=== PATIENT | female | born 1945 | race Caucasian/White ===

== ENCOUNTER → 2016-08-20 | Outpatient (REF) | payer MEDICARE, BC | LOC: M LAB REF 16:35 | PROVIDERS: ATTEND Physician Assistant | DX: L02.415 Cutaneous abscess of right lower limb (principal) ==

== ENCOUNTER → 2017-01-14 | Outpatient (REF) | payer MEDICARE, BC ==
[~2017-01-14] MED LIST: ASPI81TA85 PO; DULO1CAP3; FURO20TA2; INSUHUMDS SC; LANTINJ4; LEVO150T7; LOSARTAN/HCT; OMEP20CA3; VITA-137 PO; VYTO10TA22 PO
== END ==
LOC: M SFHCADAM 17:22
PROVIDERS: ATTEND Family Medicine
DX: R60.9 Edema, unspecified (principal); Z79.899 Other long term (current) drug therapy
CPT/HCPCS: 81002; 83880; 84443; G0463

== ENCOUNTER → 2017-01-28 | Outpatient (CLI) | payer MEDICARE, BC ==
--- NOTE | 2017-01-28 15:27 | REP ---
DUPLEX EXTREMITY VENOUS ULTRASOUND, RIGHT LOWER EXTREMITY: REFLUX STUDY. COMPARISON: Sonography 01/18/2017. REFLUX EVALUATION FINDINGS: There is mild reflux greater than 0.5 seconds in duration in the common femoral artery on the right. The anterior accessory greater saphenous vein is present without visible reflux. Reflux is observed in the greater saphenous vein measuring 0.9 seconds in duration at the saphenofemoral junction. The greater saphenous vein at this level measures 0.9 cm. No other deep system reflux is seen. The lesser saphenous vein has significant reflux greater than 0.5 seconds in duration and an AP dimension of the 0.9 cm. The exam was done with the bed tipped as the patient was unable to stand. IMPRESSION: Minimal reflux is seen in the greater saphenous vein and the lesser saphenous vein. Minimal common femoral vein reflux is seen. Signed by Flaco Palomino MD 01/29/2017 10:05 A
== END ==
LOC: M RAD 12:09
PROVIDERS: ATTEND Family Medicine
DX: R60.9 Edema, unspecified (principal)

== ENCOUNTER → 2017-02-02 | Outpatient (CLI) | payer MEDICARE, BC ==
--- NOTE | 2017-02-02 14:23 | REP ---
Clinical: Venous insufficiency . Technique: Pressley scale and color Doppler evaluation using linear high frequency transducer including reflux study. Findings: Ultrasound examination of the left lower extremity deep venous structures from the common femoral vein to the popliteal vein demonstrates normal compressibility flow and wave patterns in response to respiration and augmentation. There is no evidence for deep venous thrombosis. Evaluation for reflux demonstrates only minimal reflux through the greater saphenous vein at the level of the knee demonstrating 2 mm diameter and 3-second duration as well as involving the lesser saphenous vein below the midcalf distended to 7 mm diameter 4-second duration. Impression: No evidence for deep venous thrombosis. Very minimal reflux through the distal greater saphenous vein and mid to lower lesser saphenous vein. Signed by Da Pang MD 02/02/2017 02:14 P
== END ==
LOC: M RAD 12:41
PROVIDERS: ATTEND Family Medicine
DX: R60.9 Edema, unspecified (principal)

== ENCOUNTER 2017-02-21 18:26 | Emergency (ER) | payer MEDICARE, BC ==
[~2017-02-21] VITALS: Ht 170.2 cm; Wt 100.0 kg
[2017-02-21] MEDS ORDERED: LEVO150T7 (18:53)
[2017-02-21] MEDS ORDERED: INSUHUMDS SC (18:53)
[2017-02-21] MEDS ORDERED: FURO20TA2 (18:53)
[2017-02-21] MEDS ORDERED: VITA-137 PO (18:53)
[2017-02-21] MEDS ORDERED: LANTINJ4 (18:53)
[2017-02-21] MEDS ORDERED: OMEP20CA3 (18:53)
[2017-02-21] MEDS ORDERED: DULO1CAP3 (18:53)
[2017-02-21] MEDS ORDERED: LOSARTAN/HCT (18:53)
[2017-02-21] MEDS ORDERED: VYTO10TA22 PO (18:53)
[2017-02-21] MEDS ORDERED: ASPI81TA85 PO (18:53)
--- NOTE | 2017-02-21 21:30 | REPUSA ---
CT of the head Clinical history: Headache. Comparison: 05/22/2014. Technique: Multiple axial CT images were obtained through the head without administration of contrast . Findings: The ventricles and sulci are symmetric bilaterally. There is no evidence of acute hemorrhag e or infarct. There is no midline shift, mass effect, or extra-axial fluid collection. The osseous st ructures are unremarkable. The visualized paranasal sinuses and mastoid air cells are clear. Impression: Negative study.
[2017-02-21 22:37] VITALS: BP 120/66
== END 2017-02-21 22:39 | disposition home or self-care (01) ==
LOC: M ED 18:26
DX: G43.819 Other migraine, intractable, without status migrainosus (principal); H54.7 Unspecified visual loss; E78.00 Pure hypercholesterolemia, unspecified; I10 Essential (primary) hypertension; J45.909 Unspecified asthma, uncomplicated; Z87.440 Personal history of urinary (tract) infections; E11.9 Type 2 diabetes mellitus without complications; E03.9 Hypothyroidism, unspecified; M54.9 Dorsalgia, unspecified; F32.9 Major depressive disorder, single episode, unspecified; D75.9 Disease of blood and blood-forming organs, unspecified; Z79.82 Long term (current) use of aspirin; Z79.4 Long term (current) use of insulin; Z79.899 Other long term (current) drug therapy; Z88.0 Allergy status to penicillin; Z88.2 Allergy status to sulfonamides

== ENCOUNTER → 2017-04-15 | Outpatient (REF) | payer MEDICARE, BC ==
[2017-04-15 20:19] LABS: ANION GAP 7 MEQ/L (8-16); BLOOD UREA NITROGEN 27 MG/DL (7-18); CALCIUM LEVEL 9.6 MG/DL (8.8-10.2); CARBON DIOXIDE LEVEL 32 MEQ/L (21-32); CHLORIDE LEVEL 101 MEQ/L (98-107); CREATININE FOR GFR 0.94 MG/DL (0.55-1.02); GLOMERULAR FILTRATION RATE > 60.0 (>39); GLUCOSE, FASTING 136 MG/DL (83-110); POTASSIUM SERUM 4.2 MEQ/L (3.5-5.1); SODIUM LEVEL 140 MEQ/L (136-145)
== END ==
LOC: M SFHCADAM 11:48
PROVIDERS: ATTEND Family Medicine
DX: R60.9 Edema, unspecified (principal)
CPT/HCPCS: 80048; G0463

== ENCOUNTER → 2017-04-26 | Outpatient (CLI) | payer MEDICARE, BC ==
--- NOTE | 2017-04-26 17:07 | REP ---
Chest two views HISTORY: Cough Comparison: 05/22/2014 The lungs are clear. Calcified lymph nodes are present in the left hilum. The heart is normal in size. The pulmonary vasculature is normal in appearance. T degenerative change is present in the thoracic spine. IMPRESSION: Old granulomatous disease. Signed by Louis Geiger MD 04/26/2017 04:58 P
== END ==
LOC: M ADAMS 16:43
PROVIDERS: ATTEND Family Medicine
DX: R05 Cough (principal); J98.4 Other disorders of lung
CPT/HCPCS: 71020; G0463

== ENCOUNTER → 2017-05-18 | Outpatient (REF) | payer MEDICARE, BC ==
[2017-05-18 20:43] LABS: MEAN CORPUSCULAR HEMOGLOBIN 29.1 pg (27.0-33.0); MEAN CORPUSCULAR HGB CONC 33.5 g/dl (32.0-36.5); MEAN CORPUSCULAR VOLUME 86.8 fl (80.0-96.0); PLATELET COUNT, AUTOMATED 314 10^3/uL (150-450); WHITE BLOOD COUNT 8.7 10^3/uL (4.0-10.0)
[2017-05-18 21:15] LABS: ALBUMIN 3.7 GM/DL (3.2-5.2); ALBUMIN/GLOBULIN RATIO 1.06 (1.00-1.93); BILIRUBIN,TOTAL 0.4 MG/DL (0.2-1.0); CALCIUM LEVEL 9.1 MG/DL (8.8-10.2); CREATININE FOR GFR 1.44 MG/DL (0.55-1.02); FREE T4 2.02 NG/DL (0.76-1.46); GLOMERULAR FILTRATION RATE 38.2 (>39); POTASSIUM SERUM 3.3 MEQ/L (3.5-5.1); TOTAL PROTEIN 7.2 GM/DL (6.4-8.2)
[2017-05-18 21:16] LABS: ERYTHROCYTE SEDIMENTATION RATE 9 mm/hr (0-30)
== END ==
LOC: M SFHCADAM 15:07
PROVIDERS: ATTEND Physician Assistant
DX: I95.9 Hypotension, unspecified (principal); E03.9 Hypothyroidism, unspecified; R63.4 Abnormal weight loss; E11.69 Type 2 diabetes mellitus with other specified complication

== ENCOUNTER → 2017-05-26 | Outpatient (REF) | payer MEDICARE, BC ==
[2017-05-26 20:02] LABS: ALBUMIN 3.3 GM/DL (3.2-5.2); ALBUMIN/GLOBULIN RATIO 1.03 (1.00-1.93); ALKALINE PHOSPHATASE 80 U/L (45-117); ALT/SGPT 32 U/L (12-78); ANION GAP 7 MEQ/L (8-16); AST/SGOT 29 U/L (7-37); BILIRUBIN,TOTAL 0.4 MG/DL (0.2-1.0); BLOOD UREA NITROGEN 15 MG/DL (7-18); CALCIUM LEVEL 8.4 MG/DL (8.8-10.2); CARBON DIOXIDE LEVEL 28 MEQ/L (21-32); CHLORIDE LEVEL 106 MEQ/L (98-107); CREATININE FOR GFR 0.75 MG/DL (0.55-1.02); GLOMERULAR FILTRATION RATE > 60.0 (>39); GLUCOSE, FASTING 173 MG/DL (83-110); POTASSIUM SERUM 4.7 MEQ/L (3.5-5.1); SODIUM LEVEL 141 MEQ/L (136-145); TOTAL PROTEIN 6.5 GM/DL (6.4-8.2)
== END ==
LOC: M SFHCADAM 11:55
DX: E03.9 Hypothyroidism, unspecified (principal)
CPT/HCPCS: 80053

== ENCOUNTER → 2017-06-02 | Outpatient (REF) | payer MEDICARE, BC ==
[2017-06-02 20:56] LABS: ANION GAP 11 MEQ/L (8-16); BLOOD UREA NITROGEN 19 MG/DL (7-18); CALCIUM LEVEL 9.6 MG/DL (8.8-10.2); CARBON DIOXIDE LEVEL 29 MEQ/L (21-32); CHLORIDE LEVEL 100 MEQ/L (98-107); CREATININE FOR GFR 0.78 MG/DL (0.55-1.02); GLOMERULAR FILTRATION RATE > 60.0 (>39); GLUCOSE, FASTING 216 MG/DL (83-110); POTASSIUM SERUM 4.3 MEQ/L (3.5-5.1); SODIUM LEVEL 140 MEQ/L (136-145)
== END ==
LOC: M SFHCADAM 15:27
DX: I10 Essential (primary) hypertension (principal)
CPT/HCPCS: 80048

== ENCOUNTER 2017-07-12 14:52 | Inpatient (IN) | payer MEDICARE, BC ==
[2017-07-12] MEDS: NS 1,000 ML IV ×2 (10:00→17:09)
[2017-07-12 17:19] LABS: BASO # 0.1 10^3/uL (0.0-0.2); BASO % 0.4 % (0.0-1.0); EOS % 0.2 % (0.0-3.0); HEMATOCRIT 41.8 % (36.0-47.0); HEMOGLOBIN 14.1 g/dl (12.0-16.0); IMMATURE GRANULOCYTE % 0.4 % (0-3.0); LYMPH # 3.5 10^3/uL (1.5-4.5); MEAN CORPUSCULAR HEMOGLOBIN 28.8 pg (27.0-33.0); MEAN CORPUSCULAR HGB CONC 33.7 g/dl (32.0-36.5); MEAN CORPUSCULAR VOLUME 85.3 fl (80.0-96.0); MONO # 0.9 10^3/uL (0.0-0.8); MONO % 8.1 % (0.0-5.0); NEUTROPHILS # 6.7 10^3/uL (1.8-7.7); NEUTROPHILS % 59.9 % (36.0-66.0); PLATELET COUNT, AUTOMATED 350 10^3/uL (150-450); RED CELL DISTRIBUTION WIDTH 13.4 % (11.5-14.5); WHITE BLOOD COUNT 11.3 10^3/uL (4.0-10.0)
[2017-07-12 17:41] LABS: APPEARANCE, URINE CLOUDY (CLEAR); BACTERIA, URINE AUTO 3+ (NEGATIVE); BILIRUBIN, URINE AUTO NEGATIVE (NEGATIVE); BLOOD, URINE BLOOD NEGATIVE (NEGATIVE); CALCIUM OXALATE CRYSTALS SMALL; COLOR, URINE AMBER (YELLOW); GLUCOSE, URINE (UA) AUTO NEGATIVE (NEGATIVE); KETONE, URINE AUTO TRACE mg/dL (NEGATIVE); LEUKOCYTE ESTERASE, URINE AUTO 1+ (NEGATIVE); MUCUS, URINE SMALL (NEGATIVE); NITRITE, URINE AUTO NEGATIVE (NEGATIVE); PROTEIN, URINE AUTO 1+ mg/dL (NEGATIVE); RBC, URINE AUTO 2 /HPF (0-3); SPECIFIC GRAVITY URINE AUTO 1.018 (1.002-1.035); SQUAMOUS EPITHELIAL CELL UR AU 7 /HPF (0-6); WBC, URINE AUTO TNTC /HPF (0-3)
[2017-07-12 18:04] LABS: ALBUMIN 3.8 GM/DL (3.2-5.2); ALBUMIN/GLOBULIN RATIO 0.93 (1.00-1.93); ALKALINE PHOSPHATASE 63 U/L (45-117); ALT/SGPT 31 U/L (12-78); ANION GAP 11 MEQ/L (8-16); AST/SGOT 23 U/L (7-37); BILIRUBIN,DIRECT 0.2 MG/DL (0.0-0.2); BILIRUBIN,TOTAL 0.7 MG/DL (0.2-1.0); BLOOD UREA NITROGEN 40 MG/DL (7-18); CALCIUM LEVEL 9.5 MG/DL (8.8-10.2); CARBON DIOXIDE LEVEL 32 MEQ/L (21-32); CHLORIDE LEVEL 93 MEQ/L (98-107); CREATININE FOR GFR 1.57 MG/DL (0.55-1.30); GLOMERULAR FILTRATION RATE 34.6 (>39); GLUCOSE, FASTING 186 MG/DL (70-100); MAGNESIUM LEVEL 1.9 MG/DL (1.8-2.4); POTASSIUM SERUM 3.1 MEQ/L (3.5-5.1); SODIUM LEVEL 136 MEQ/L (136-145); TOTAL PROTEIN 7.9 GM/DL (6.4-8.2)
[2017-07-12] MEDS ORDERED: DEXTROSE 50% 50 ML SYRINGE IV (20:15)
[2017-07-12] MEDS ORDERED: GLUCOSE 4 GM CHEW TABLET PO (20:15)
[2017-07-12] MEDS ORDERED: GLUCAGON FOR INJ 1 MG VIAL (J1610) SC (20:15)
[2017-07-12] MEDS ORDERED: ONDANSETRON 4MG/2ML VIAL (J2405) IV (20:15)
[2017-07-12 20:25] LABS: ANION GAP 6 MEQ/L (8-16); BLOOD UREA NITROGEN 38 MG/DL (7-18); CALCIUM LEVEL 8.5 MG/DL (8.8-10.2); CARBON DIOXIDE LEVEL 32 MEQ/L (21-32); CHLORIDE LEVEL 100 MEQ/L (98-107); CREATININE FOR GFR 1.13 MG/DL (0.55-1.30); GLOMERULAR FILTRATION RATE 50.5 (>39); GLUCOSE, FASTING 163 MG/DL (70-100); MAGNESIUM LEVEL 1.7 MG/DL (1.8-2.4); PHOSPHORUS LEVEL 2.8 MG/DL (2.5-4.9); POTASSIUM SERUM 3.4 MEQ/L (3.5-5.1); SODIUM LEVEL 138 MEQ/L (136-145)
[2017-07-12] MEDS ORDERED: GASTROGRAFIN SOLUTION 30ML (Q9963) As Ordered (20:54)
[2017-07-12] MEDS: HumaLOG INSULIN (NovoLOG) PER UNIT SC (21:00)
[2017-07-12 21:12] LABS: AMYLASE 46 U/L (25-115); LIPASE 98 U/L (73-393)
[2017-07-12] MEDS: GASTROGRAFIN SOLUTION 30ML PO ×2 (21:15→21:45)
[2017-07-12 21:40] LABS: BEDSIDE GLUCOSE 161 MG/DL (83-110)
[2017-07-12] MEDS: POTASSIUM CHLORIDE 10 MEQ SR TABLET PO (22:14)
[2017-07-12] MEDS: MAG SULF 1GM/100ML (MAG RUN) 1 GM in APPROPRIATE DILUENT 1 EA IV (22:15)
[2017-07-12 22:32] LABS: LACTIC ACID SEPSIS PROTOCOL 1.9 MMOL/L (0.4-2.0)
[2017-07-12] MEDS: KCL 40MEQ in NS 1000ML 1,000 ML IV (23:23)
[2017-07-13 06:05] LABS: BASO # 0.1 10^3/uL (0.0-0.2); BASO % 0.6 % (0.0-1.0); EOS # 0.1 10^3/uL (0.0-0.50); HEMATOCRIT 33.2 % (36.0-47.0); IMMATURE GRANULOCYTE % 0.5 % (0-3.0); LYMPH # 3.3 10^3/uL (1.5-4.5); LYMPH % 38.4 % (24.0-44.0); MEAN CORPUSCULAR HGB CONC 34.3 g/dl (32.0-36.5); MEAN CORPUSCULAR VOLUME 84.5 fl (80.0-96.0); MONO % 11.7 % (0.0-5.0); NEUTROPHILS # 4.1 10^3/uL (1.8-7.7); NEUTROPHILS % 47.8 % (36.0-66.0); PLATELET COUNT, AUTOMATED 276 10^3/uL (150-450); RED BLOOD COUNT 3.93 10^6/uL (4.00-5.40); RED CELL DISTRIBUTION WIDTH 13.4 % (11.5-14.5); WHITE BLOOD COUNT 8.6 10^3/uL (4.0-10.0)
[2017-07-13] MEDS: LEVOTHYROXINE 125MCG TABLET (0.125MG) PO (06:09)
[2017-07-13] MEDS: HEPARIN SOD (PORCINE) 5000 UNITS/ML VIAL SC (06:10)
[2017-07-13 06:23] LABS: HEMOGLOBIN 11.4 g/dl (12.0-16.0)
[2017-07-13 06:30] LABS: ALBUMIN 2.9 GM/DL (3.2-5.2); ALKALINE PHOSPHATASE 49 U/L (45-117); ALT/SGPT 32 U/L (12-78); ANION GAP 6 MEQ/L (8-16); AST/SGOT 32 U/L (7-37); BILIRUBIN,TOTAL 0.6 MG/DL (0.2-1.0); BLOOD UREA NITROGEN 32 MG/DL (7-18); CALCIUM LEVEL 8.1 MG/DL (8.8-10.2); CARBON DIOXIDE LEVEL 30 MEQ/L (21-32); CHLORIDE LEVEL 103 MEQ/L (98-107); CREATININE FOR GFR 0.86 MG/DL (0.55-1.30); GLOMERULAR FILTRATION RATE > 60.0 (>39); GLUCOSE, FASTING 114 MG/DL (70-100); POTASSIUM SERUM 3.3 MEQ/L (3.5-5.1); SODIUM LEVEL 139 MEQ/L (136-145); TOTAL PROTEIN 5.8 GM/DL (6.4-8.2)
[2017-07-13] MEDS: HumaLOG INSULIN (NovoLOG) PER UNIT SC ×2 (07:45→13:23)
[2017-07-13] MEDS: PANTOPRAZOLE 40MG INJ (PROTONIX) (C9113) IV (08:38)
[2017-07-13] MEDS: VITAMIN D 1,000 INTERNATIONAL UNITS TABLET PO (08:39)
[2017-07-13] MEDS: ASPIRIN 81 MG ENTERIC TAB PO (08:40)
[2017-07-13] MEDS: POTASSIUM CHLORIDE 10 MEQ SR TABLET PO (08:40)
[2017-07-13 09:27] LABS: FREE T4 1.63 NG/DL (0.76-1.46); THYROID STIMULATING HORMONE 0.194 uIU/ML (0.358-3.740)
[2017-07-13 11:41] LABS: SODIUM,RANDOM URINE 69 MEQ/L
[2017-07-14] MEDS ORDERED: LEVOTHYROXINE 112MCG TABLET (0.112MG) PO (06:00)
== END 2017-07-13 15:14 | disposition left against medical advice (07) | DRG 312 ==
LOC: M ED 14:52 → M ED INP 20:08 → M PCU 23:50
PROVIDERS: Internal Medicine
DX: I95.1 Orthostatic hypotension (principal); N17.9 Acute kidney failure, unspecified; E11.40 Type 2 diabetes mellitus with diabetic neuropathy, unspecified; T38.3X5A Adverse effect of insulin and oral hypoglycemic [antidiabetic] drugs, initial encounter; E03.9 Hypothyroidism, unspecified; R11.2 Nausea with vomiting, unspecified; Z79.82 Long term (current) use of aspirin; Z79.899 Other long term (current) drug therapy; I10 Essential (primary) hypertension; E78.5 Hyperlipidemia, unspecified; Z85.3 Personal history of malignant neoplasm of breast; Z88.0 Allergy status to penicillin; Z88.2 Allergy status to sulfonamides; Z88.8 Allergy status to other drugs, medicaments and biological substances; D25.9 Leiomyoma of uterus, unspecified; M43.06 Spondylolysis, lumbar region; M43.04 Spondylolysis, thoracic region; K80.20 Calculus of gallbladder without cholecystitis without obstruction; D72.829 Elevated white blood cell count, unspecified; E55.9 Vitamin D deficiency, unspecified; K21.9 Gastro-esophageal reflux disease without esophagitis; E87.6 Hypokalemia; Z79.4 Long term (current) use of insulin

== ENCOUNTER → 2017-07-12 | Outpatient (REF) | payer MEDICARE, BC ==
[2017-07-12 13:18] LABS: ANION GAP 12 MEQ/L (8-16); BLOOD UREA NITROGEN 38 MG/DL (7-18); CALCIUM LEVEL 9.6 MG/DL (8.8-10.2); CARBON DIOXIDE LEVEL 31 MEQ/L (21-32); CHLORIDE LEVEL 94 MEQ/L (98-107); CREATININE FOR GFR 1.45 MG/DL (0.55-1.30); GLOMERULAR FILTRATION RATE 37.9 (>39); GLUCOSE, FASTING 174 MG/DL (70-100); POTASSIUM SERUM 3.2 MEQ/L (3.5-5.1); SODIUM LEVEL 137 MEQ/L (136-145)
== END ==
LOC: M LABDRWAD 12:24
DX: E11.65 Type 2 diabetes mellitus with hyperglycemia (principal)

== ENCOUNTER → 2017-07-19 | Outpatient (REF) | payer MEDICARE, BC ==
[2017-07-19 20:22] LABS: ALBUMIN 3.4 GM/DL (3.2-5.2); ALBUMIN/GLOBULIN RATIO 1.13 (1.00-1.93); ALKALINE PHOSPHATASE 68 U/L (45-117); ALT/SGPT 22 U/L (12-78); ANION GAP 9 MEQ/L (8-16); AST/SGOT 18 U/L (7-37); BILIRUBIN,TOTAL 0.7 MG/DL (0.2-1.0); BLOOD UREA NITROGEN 27 MG/DL (7-18); CALCIUM LEVEL 8.9 MG/DL (8.8-10.2); CARBON DIOXIDE LEVEL 29 MEQ/L (21-32); CHLORIDE LEVEL 101 MEQ/L (98-107); CREATININE FOR GFR 1.02 MG/DL (0.55-1.30); GLOMERULAR FILTRATION RATE 56.9 (>39); GLUCOSE, FASTING 178 MG/DL (70-100); POTASSIUM SERUM 4.2 MEQ/L (3.5-5.1); SODIUM LEVEL 139 MEQ/L (136-145); TOTAL PROTEIN 6.4 GM/DL (6.4-8.2)
== END ==
LOC: M SFHCADAM 13:39
DX: E87.6 Hypokalemia (principal)
CPT/HCPCS: 80053

== ENCOUNTER → 2017-08-16 | Outpatient (REF) | payer MEDICARE, BC | LOC: M LABDRWAD 20:20 | DX: E03.9 Hypothyroidism, unspecified (principal) | CPT/HCPCS: 84443 ==

== ENCOUNTER → 2018-09-06 | Outpatient (CLI) | payer MEDICARE, BC ==
[~2018-09-06] MED LIST changes: +ASPI81TAEC PO; -FURO20TA2; +FURO20TA2 PO; +HUMA100I3 SC; -LEVO150T7; +LEVO150T7 PO; +LOSA100T5 PO; +LOSARTAN/HCT PO; -OMEP20CA3; +OMEP20CA3 PO; +OSEL75CA2 PO; +PROHANCE 279.3MG/ML 15ML VIAL (A9576) As Ordered ONE; +PROHANCE 279.3MG/ML 5ML VIAL (A9576) As Ordered ONE; +SYNT112T2 PO; +SYNT125T PO; +TESS100C PO; +TRES1INJ SQ; +VITA500046 PO
--- NOTE | 2018-09-06 17:45 | REP ---
MRI right forefoot without and with IV gadolinium: History: Attention great toe. Ulcer on the dorsal aspect. Evaluate for osteomyelitis. Gadolinium enhancement dose is 20 ml of intravenous ProHance. Technique: Axial coronal and sagittal imaging planes utilized. T1 and T2-weighted scans were obtained with and without fat saturation. No comparison x-rays. MRI findings: There is magnetic field susceptibility artifact emanating extensively from the distal aspect of the first metatarsal as well as the proximal and distal phalanges of the great toe. This limits visualization severely. Most particularly in the phalanges and distal half of the first metatarsal. Cortical and medullary bone signal intensity appear to be normal in the second through fifth metatarsals and in the second through fifth digit phalanges. There is no evidence of osteomyelitis affecting digits two through five. The visualized tarsal bones appear intact. There is a small subcortical cyst in the middle cuneiform. No forefoot abscess is seen. Postcontrast imaging shows no abnormal enhancement in the digits two through five. Metallic artifact obscures the great toe and distal first metatarsal. No soft tissue abscess is seen. Impression: Metallic field susceptibility artifact obscures the great toe phalanges and distal first metatarsal. Otherwise no evidence of osteomyelitis. Electronically Signed by Flaco Palomino MD 09/06/2018 08:38 P
== END ==
LOC: M RAD 15:21
PROVIDERS: ATTEND Podiatrist
DX: Z87.39 Personal history of other diseases of the musculoskeletal system and connective tissue (principal)
CPT/HCPCS: 73720; A9576

== ENCOUNTER → 2018-11-16 | Outpatient (REF) | payer MEDICARE, BC ==
[~2018-11-16] MED LIST changes: -DULO1CAP3; +DULO1CAP6; -OMEP20CA3 PO; +OMEP20CA4 PO; -PROHANCE 279.3MG/ML 15ML VIAL (A9576) As Ordered ONE; -PROHANCE 279.3MG/ML 5ML VIAL (A9576) As Ordered ONE
[2018-11-16 19:35] LABS: ALBUMIN 3.3 GM/DL (3.2-5.2); ALT/SGPT 20 U/L (12-78); BILIRUBIN,TOTAL 0.3 MG/DL (0.2-1.0); BLOOD UREA NITROGEN 32 MG/DL (7-18); CARBON DIOXIDE LEVEL 30 MEQ/L (21-32); CHLORIDE LEVEL 103 MEQ/L (98-107); CREATININE FOR GFR 0.93 MG/DL (0.55-1.30); GLOMERULAR FILTRATION RATE > 60.0 (>39); GLUCOSE, FASTING 217 MG/DL (70-100); POTASSIUM SERUM 4.1 MEQ/L (3.5-5.1); SODIUM LEVEL 140 MEQ/L (136-145); TOTAL PROTEIN 6.8 GM/DL (6.4-8.2)
[2018-11-16 19:39] LABS: HEMOGLOBIN A1c 7.9 %
[2018-11-16 19:48] LABS: BASO # 0.1 10^3/uL (0.0-0.2); BASO % 0.8 % (0.0-1.0); EOS # 0.1 10^3/uL (0.0-0.50); EOS % 0.8 % (0.0-3.0); HEMATOCRIT 36.4 % (36.0-47.0); HEMOGLOBIN 11.7 g/dl (12.0-15.5); LYMPH # 2.6 10^3/uL (1.5-4.5); MEAN CORPUSCULAR HEMOGLOBIN 29.5 pg (27.0-33.0); MEAN CORPUSCULAR HGB CONC 32.1 g/dl (32.0-36.5); MEAN CORPUSCULAR VOLUME 91.9 fl (80.0-96.0); MONO # 0.9 10^3/uL (0.0-0.8); MONO % 11.5 % (0.0-5.0); NEUTROPHILS # 3.8 10^3/uL (1.8-7.7); NEUTROPHILS % 51.5 % (36.0-66.0); PLATELET COUNT, AUTOMATED 271 10^3/uL (150-450); RED BLOOD COUNT 3.96 10^6/uL (4.00-5.40); WHITE BLOOD COUNT 7.4 10^3/uL (4.0-10.0)
== END ==
LOC: M SFHCADAM 14:32
PROVIDERS: ATTEND Family Medicine
DX: Z01.818 Encounter for other preprocedural examination (principal); Z96.7 Presence of other bone and tendon implants
CPT/HCPCS: 80053; 83036; 85025; G0463

== ENCOUNTER → 2019-04-12 | Outpatient (REF) | payer MEDICARE, BC ==
[2019-04-12 13:04] LABS: BASO # 0.1 10^3/uL (0.0-0.2); EOS # 0.1 10^3/uL (0.0-0.5); EOS % 0.7 % (0.0-3.0); HEMOGLOBIN 12.4 g/dl (12.0-15.5); LYMPH # 2.1 10^3/uL (1.5-5.0); LYMPH % 21.5 % (24.0-44.0); MEAN CORPUSCULAR HEMOGLOBIN 29.1 pg (27.0-33.0); MEAN CORPUSCULAR HGB CONC 31.8 g/dl (32.0-36.5); MEAN CORPUSCULAR VOLUME 91.5 fl (80.0-96.0); MONO # 0.9 10^3/uL (0.0-0.8); MONO % 9.6 % (0.0-5.0); NEUTROPHILS # 6.5 10^3/uL (1.5-8.5); NEUTROPHILS % 66.8 % (36.0-66.0); PLATELET COUNT, AUTOMATED 332 10^3/uL (150-450); RED BLOOD COUNT 4.26 10^6/uL (4.00-5.40); WHITE BLOOD COUNT 9.7 10^3/uL (4.0-10.0)
[2019-04-12 13:35] LABS: ALBUMIN 3.4 GM/DL (3.2-5.2); BILIRUBIN,TOTAL 0.6 MG/DL (0.2-1.0); CALCIUM LEVEL 9.1 MG/DL (8.8-10.2); CREATININE FOR GFR 1.2 MG/DL (0.55-1.30); FREE T4 1.49 NG/DL (0.76-1.46); GLOMERULAR FILTRATION RATE 46.9 (>39); POTASSIUM SERUM 3.3 MEQ/L (3.5-5.1); THYROID STIMULATING HORMONE 0.441 uIU/ML (0.358-3.740)
== END ==
LOC: M SFHCADAM 10:04
PROVIDERS: ATTEND Family Medicine
DX: R00.1 Bradycardia, unspecified (principal); I10 Essential (primary) hypertension

== ENCOUNTER → 2019-04-21 | Outpatient (REF) | payer MEDICARE, BC ==
[2019-04-21 18:33] LABS: MALB URINE SIEMENS 20.5 MG/L; MAU/CREAT RATIO 9.7 MCG/MG (0.0-30.0)
== END ==
LOC: M LAB REF 16:47
PROVIDERS: ATTEND Internal Medicine Endocrinology, Diabetes & Metabolism
DX: E11.65 Type 2 diabetes mellitus with hyperglycemia (principal)

== ENCOUNTER → 2019-06-12 | Outpatient (REF) | payer MEDICARE, BC ==
[~2019-06-12] MED LIST changes: +OMEP1CAP73 PO; -OMEP20CA4 PO
[2019-06-12 19:35] LABS: BASO # 0.1 10^3/uL (0.0-0.2); BASO % 1.4 % (0.0-1.0); EOS # 0.1 10^3/uL (0.0-0.5); EOS % 1.4 % (0.0-3.0); HEMATOCRIT 41.5 % (36.0-47.0); HEMOGLOBIN 12.7 g/dl (12.0-15.5); LYMPH # 2.8 10^3/uL (1.5-5.0); LYMPH % 39.9 % (24.0-44.0); MEAN CORPUSCULAR HEMOGLOBIN 28.5 pg (27.0-33.0); MEAN CORPUSCULAR HGB CONC 30.6 g/dl (32.0-36.5); MONO # 0.7 10^3/uL (0.0-0.8); MONO % 9.1 % (0.0-5.0); NEUTROPHILS # 3.4 10^3/uL (1.5-8.5); NEUTROPHILS % 47.9 % (36.0-66.0); PLATELET COUNT, AUTOMATED 318 10^3/uL (150-450); RED BLOOD COUNT 4.46 10^6/uL (4.00-5.40); WHITE BLOOD COUNT 7.1 10^3/uL (4.0-10.0)
[2019-06-12 19:41] LABS: ALBUMIN 3.5 GM/DL (3.2-5.2); ALT/SGPT 19 U/L (12-78); BILIRUBIN,TOTAL 0.3 MG/DL (0.2-1.0); BLOOD UREA NITROGEN 17 MG/DL (7-18); CALCIUM LEVEL 9.4 MG/DL (8.8-10.2); CARBON DIOXIDE LEVEL 29 MEQ/L (21-32); CHLORIDE LEVEL 105 MEQ/L (98-107); CREATININE FOR GFR 0.72 MG/DL (0.55-1.30); GLOMERULAR FILTRATION RATE > 60.0 (>39); GLUCOSE, FASTING 108 MG/DL (70-100); POTASSIUM SERUM 4.2 MEQ/L (3.5-5.1); SODIUM LEVEL 140 MEQ/L (136-145); TOTAL PROTEIN 6.8 GM/DL (6.4-8.2)
== END ==
LOC: M SFHCADAM 15:35
PROVIDERS: ATTEND Family Medicine
DX: Z00.00 Encounter for general adult medical examination without abnormal findings (principal); Z79.899 Other long term (current) drug therapy
CPT/HCPCS: 80053; 85025; G0463

== ENCOUNTER → 2019-10-12 | Outpatient (CLI) | payer MEDICARE, BC | LOC: M LABSMTC 10:24 | PROVIDERS: ATTEND Family Medicine | DX: Z11.59 Encounter for screening for other viral diseases (principal) | CPT/HCPCS: C9803; U0003 ==

== ENCOUNTER → 2019-10-26 | Outpatient (REF) | payer MEDICARE, BC ==
[2019-10-26 18:44] LABS: ALBUMIN 3.3 GM/DL (3.2-5.2); ALT/SGPT 57 U/L (12-78); BILIRUBIN,TOTAL 0.4 MG/DL (0.2-1.0); BLOOD UREA NITROGEN 27 MG/DL (7-18); CARBON DIOXIDE LEVEL 29 MEQ/L (21-32); CHLORIDE LEVEL 106 MEQ/L (98-107); CREATININE FOR GFR 0.84 MG/DL (0.55-1.30); FREE T4 1.28 NG/DL (0.76-1.46); GLOMERULAR FILTRATION RATE > 60.0 (>39); GLUCOSE, FASTING 158 MG/DL (70-100); POTASSIUM SERUM 4.8 MEQ/L (3.5-5.1); SODIUM LEVEL 140 MEQ/L (136-145); TOTAL PROTEIN 6.6 GM/DL (6.4-8.2)
== END ==
LOC: M SFHCADAM 14:23
PROVIDERS: ATTEND Family Medicine
DX: R60.9 Edema, unspecified (principal)

== ENCOUNTER → 2019-11-29 | Outpatient (CLI) | payer MEDICARE, BC ==
--- NOTE | 2019-11-29 16:41 | REP ---
Clinical: Bilateral pain and swelling . Technique: Pressley scale and color Doppler evaluation bilateral lower extremities using linear high frequency transducer. Findings: Ultrasound examination of the right and left lower extremity deep venous structures from the common femoral vein to the popliteal vein demonstrates normal compressibility flow and wave patterns in response to respiration and augmentation. There is no evidence for deep venous thrombosis. Reflux evaluation of the right lower extremity demonstrates reflux through the deep system and a minimal reflux through the proximal and mid greater saphenous vein measuring 5.8 mm diameter with 2.1 seconds reflux duration proximally and 2.8 mm diameter with 2.8 seconds reflux duration and mid GSV level respectively. 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 Impression: No evidence for deep venous thrombosis. Very minimal amounts of reflux through the superficial venous system. Electronically Signed by Da Pang MD 11/29/2019 04:32 P
== END ==
LOC: M RAD 13:56
PROVIDERS: ATTEND Family Medicine
DX: R60.9 Edema, unspecified (principal)

== ENCOUNTER → 2020-04-10 | Outpatient (REF) | payer MEDICARE, BC ==
[~2020-04-10] MED LIST changes: -ASPI81TA85 PO; +ASPI81TA86 PO
[2020-04-10 17:28] LABS: FREE T4 1.41 NG/DL (0.76-1.46); THYROID STIMULATING HORMONE 1.29 uIU/ML (0.358-3.740)
== END ==
LOC: M SFHCADAM 16:34
PROVIDERS: ATTEND Family Medicine
DX: E03.9 Hypothyroidism, unspecified (principal); E78.5 Hyperlipidemia, unspecified; E11.65 Type 2 diabetes mellitus with hyperglycemia

== ENCOUNTER → 2020-04-10 | Outpatient (REF) | payer MEDICARE, BC ==
[2020-04-10 18:39] LABS: MALB URINE SIEMENS 22.1 MG/L; MAU/CREAT RATIO 11.3 MCG/MG (0.0-30.0)
== END ==
LOC: M LAB REF 16:32
PROVIDERS: ATTEND Internal Medicine Endocrinology, Diabetes & Metabolism
DX: E11.65 Type 2 diabetes mellitus with hyperglycemia (principal)

== ENCOUNTER → 2020-09-30 | Outpatient (CLI) | payer MEDICARE, BC ==
[~2020-09-30] MED LIST changes: +ASPI-569 PO; -ASPI81TAEC PO
--- NOTE | 2020-09-30 14:41 | REP ---
INDICATION: PAIN. COMPARISON: Two view right hip exam of 10/26/2012 TECHNIQUE: Standing AP pelvis and two views of the right hip FINDINGS: There is asymmetric hip joint space narrowing bilaterally seen on the standing AP pelvis view. There is no prominent marginal osteophytosis, fracture, dislocation, or subluxation. The chronic right hip changes of increased when compared to the prior exam. IMPRESSION: Degenerative changes as described above. <Electronically signed by Prakash Garvin > 09/30/20 [id number]
== END ==
LOC: M SOG 08:15
PROVIDERS: ATTEND Orthopaedic Surgery Adult Reconstructive Orthopaedic Surgery
DX: M25.551 Pain in right hip (principal)

== ENCOUNTER → 2020-10-14 | Outpatient (CLI) | payer MEDICARE, BC ==
[~2020-10-14] MED LIST changes: +BUPIVACAINE HCL 0.5% 10ML VIAL As Ordered ONE; +methylPREDNISolone 80MG/ML SUSP 1ML VIAL (J1040) As Ordered ONE
--- NOTE | 2020-10-14 16:57 | REP ---
INDICATION: TROCHANTERIC BURSITIS, RT HIP. COMPARISON: None. TECHNIQUE: The procedure was performed under the direct supervision of Dr. Prsesley. The risks and benefits of the procedure were explained to the patient and informed consent was obtained. The right trochanteric bursa was localized using ultrasound guidance. The skin was prepped and draped in a sterile fashion. 1% lidocaine was used as a local anesthetic. Using ultrasound guidance 5 cc of a solution containing 4 cc of 0.5% Marcaine and 1 cc of Depo-Medrol 40 mg was injected. The needle was then removed. The patient tolerated the procedure well and there were no immediate complications. FINDINGS: None IMPRESSION: Ultrasound-guided right trochanteric bursa injection. <Electronically signed by Romulo Ibarra > 10/14/20 [id number] <Electronically signed by Elier Pressley > 10/14/20 [id number]
== END ==
LOC: M IRPRO 11:20
PROVIDERS: ATTEND Orthopaedic Surgery Adult Reconstructive Orthopaedic Surgery
DX: M70.61 Trochanteric bursitis, right hip (principal)
CPT/HCPCS: 20611; J1040

== ENCOUNTER → 2021-01-27 | Outpatient (REF) | payer MEDICARE, BC ==
[~2021-01-27] MED LIST changes: -BUPIVACAINE HCL 0.5% 10ML VIAL As Ordered ONE; -methylPREDNISolone 80MG/ML SUSP 1ML VIAL (J1040) As Ordered ONE
[2021-01-27 14:13] LABS: ALBUMIN 3.4 GM/DL (3.2-5.2); ALT/SGPT 37 U/L (12-78); BILIRUBIN,TOTAL 0.4 MG/DL (0.2-1.0); BLOOD UREA NITROGEN 25 MG/DL (7-18); CALCIUM LEVEL 9.6 MG/DL (8.8-10.2); CARBON DIOXIDE LEVEL 27 MEQ/L (21-32); CHLORIDE LEVEL 104 MEQ/L (98-107); CREATININE FOR GFR 0.76 MG/DL (0.55-1.30); FREE T4 1.28 NG/DL (0.76-1.46); GLOMERULAR FILTRATION RATE > 60.0 (>39); GLUCOSE, FASTING 232 MG/DL (70-100); POTASSIUM SERUM 4.6 MEQ/L (3.5-5.1); SODIUM LEVEL 138 MEQ/L (136-145); THYROID STIMULATING HORMONE 0.873 uIU/ML (0.358-3.740); TOTAL PROTEIN 6.6 GM/DL (6.4-8.2)
== END ==
LOC: M SFHCADAM 11:31
PROVIDERS: ATTEND Family Medicine
DX: E03.9 Hypothyroidism, unspecified (principal); I10 Essential (primary) hypertension

== ENCOUNTER → 2021-03-28 | Outpatient (CLI) | payer MEDICARE, BC ==
[~2021-03-28] MED LIST changes: +BUPIVACAINE HCL 0.5% 30 ML VIAL As Ordered ONE; +methylPREDNISolone 80MG/ML SUSP 1ML VIAL (J1040) As Ordered ONE
--- NOTE | 2021-03-31 18:09 | REP ---
INDICATION: TROCHANTERIC BURSITIS RIGHT HIP. COMPARISON: None. TECHNIQUE: The procedure was performed by GABRIELLA Agee, under the direct supervision of Dr. Pressley. The risks and benefits of the procedure were explained to the patient and an informed consent was obtained both verbally and written. Directly prior to the start of the procedure a formal time-out was completed in the procedure room. The area of the right trochanteric bursa was marked prepped and draped in the usual sterile fashion. 10 cc 1% lidocaine were used for local anesthetic. A 22 gauge spinal needle was advanced to the right trochanteric bursa. 6 cc of a solution containing 5 cc of bupivacaine and 1 cc Depo-Medrol 80 mg/mL were injected into the trochanteric bursa. The needle was then removed. A bandage was placed at the injection site. The patient tolerated the procedure well and there were no immediate complications. . FINDINGS: The area of the right trochanteric bursa was marked prepped and draped in the usual sterile fashion. 10 cc 1% lidocaine were used for local anesthetic. A 22 gauge spinal needle was advanced to the right trochanteric bursa. 6 cc of a solution containing 5 cc of bupivacaine and 1 cc Depo-Medrol 80 mg/mL were injected into the trochanteric bursa. The needle was then removed. A bandage was placed at the injection site IMPRESSION: Technically successful ultrasound-guided right trochanteric bursa injection. <Electronically signed by Rima Garcia > 03/28/21 [id number] <Electronically signed by Elier Prsesley > 03/31/21 [id number]
== END ==
LOC: M IRPRO 12:01
PROVIDERS: ATTEND Orthopaedic Surgery Adult Reconstructive Orthopaedic Surgery
DX: M70.61 Trochanteric bursitis, right hip (principal)
CPT/HCPCS: 20611; J1040

== ENCOUNTER → 2021-06-04 | Outpatient (REF) ==
[~2021-06-04] MED LIST changes: -BUPIVACAINE HCL 0.5% 30 ML VIAL As Ordered ONE; -methylPREDNISolone 80MG/ML SUSP 1ML VIAL (J1040) As Ordered ONE
== END ==
LOC: M LABSMTC 09:09
PROVIDERS: ATTEND Pediatrics
DX: Z11.52 Encounter for screening for COVID-19 (principal)

== ENCOUNTER → 2021-09-04 | Outpatient (CLI) | payer MEDICARE, BC | LOC: M ADAMS 11:18 | PROVIDERS: ATTEND Family Medicine | DX: R29.898 Other symptoms and signs involving the musculoskeletal system (principal) ==

== ENCOUNTER 2022-01-21 14:10 | Inpatient (IN) | payer MEDICARE, BC ==
[~2022-01-21] VITALS: Ht 170.2 cm; Wt 93.2 kg
[~2022-01-21 14:10] MED LIST changes: +EZET-18 PO; -VYTO10TA22 PO
[2022-01-21] MEDS ORDERED: NS 1,000 ML IV SCH (16:00)
[2022-01-21 16:24] LABS: HEMATOCRIT 34.9 % (36.0-47.0); HEMOGLOBIN 11.3 g/dl (12.0-15.5); MEAN CORPUSCULAR HEMOGLOBIN 29.9 pg (27.0-33.0); MEAN CORPUSCULAR HGB CONC 32.4 g/dl (32.0-36.5); MEAN CORPUSCULAR VOLUME 92.3 fl (80.0-96.0); PLATELET COUNT, AUTOMATED 277 10^3/uL (150-450); RED BLOOD COUNT 3.78 10^6/uL (4.00-5.40)
[2022-01-21] MEDS ORDERED: LEVO100T5 PO (16:40)
[2022-01-21] MEDS ORDERED: TRES1INJ2 SC (16:40)
[2022-01-21] MEDS ORDERED: EZET1TAB96 PO (16:40)
[2022-01-21] MEDS ORDERED: TRUL0.5I SC (16:42)
[2022-01-21] MEDS ORDERED: D-50CAP PO (16:42)
[2022-01-21 16:44] LABS: INR 1.05; PROTHROMBIN TIME 14.1 SECONDS (12.7-14.5)
[2022-01-21 16:45] LABS: PARTIAL THROMBOPLASTIN TIME 31.1 SECONDS (25.9-37.0)
[2022-01-21] MEDS ORDERED: HOME MED LIST COMPLETE! XX SCH (16:45)
[2022-01-21 16:50] LABS: BLOOD UREA NITROGEN 22 MG/DL (7-18); CALCIUM LEVEL 9.3 MG/DL (8.8-10.2); CARBON DIOXIDE LEVEL 26 MEQ/L (21-32); CHLORIDE LEVEL 103 MEQ/L (98-107); CREATININE FOR GFR 0.85 MG/DL (0.55-1.30); GLOMERULAR FILTRATION RATE > 60.0 (>39); GLUCOSE, FASTING 316 MG/DL (70-100); POTASSIUM SERUM 4.3 MEQ/L (3.5-5.1); SODIUM LEVEL 135 MEQ/L (136-145)
[2022-01-21 17:00] LABS: RSV AMPLIFICATION NEGATIVE (NEGATIVE)
[2022-01-21] MEDS ORDERED: MORPHINE 4 MG/ML 1ML VIAL/SYRINGE IV PRN (17:25)
[2022-01-21] MEDS ORDERED: GLUCAGON INJ 1MG VIAL SC PRN (17:25)
[2022-01-21] MEDS ORDERED: GLUCOSE 4GM CHEW TABLET PO PRN (17:25)
[2022-01-21] MEDS ORDERED: DEXTROSE 50% 50 ML SYRINGE IV PRN (17:25)
[2022-01-21] MEDS: INSULIN LISPRO (NovoLOG) PER UNIT SC SCH (18:02)
[2022-01-21] MEDS ORDERED: fentaNYL 100 MCG/2 ML INJECTION As Ordered ONE (18:46)
[2022-01-21] MEDS ORDERED: dexameTHASONE 4 MG/ML 1ML VIAL (J1100 PER 1MG) As Ordered ONE (18:47)
[2022-01-21] MEDS ORDERED: MIDAZOLAM INJ 2MG/2ML VIAL (J2250 PER 1MG) As Ordered ONE (18:47)
[2022-01-21] MEDS ORDERED: ROCURONIUM BROMIDE 50 MG/5 ML VIAL As Ordered ONE ×2 (18:47→20:18)
[2022-01-21] MEDS ORDERED: ONDANSETRON 4MG 2ML VIAL As Ordered ONE (18:47)
[2022-01-21] MEDS ORDERED: propofoL 200 MG/20 ML VIAL As Ordered ONE (18:47)
[2022-01-21] MEDS ORDERED: LIDOCAINE 2% 100MG/5ML SDV (FOR ANES.) As Ordered ONE (18:47)
[2022-01-21] MEDS ORDERED: ceFAZolin 2 GM/D5W 50 ML IV BAG (J0690 PER 500MG) As Ordered ONE (19:19)
[2022-01-21] MEDS ORDERED: TRANEXAMIC ACID 100 MG/ML 10ML VIAL As Ordered ONE (19:37)
[2022-01-21] MEDS ORDERED: SUCCINYLCHOLINE 100 MG/5 ML SYRINGE (J0330) As Ordered ONE (19:50)
[2022-01-21] MEDS ORDERED: ACETAMINOPHEN 1000MG 100ML IV BTL (OFIRMEV) (J0131 PER 10MG) As Ordered ONE (19:58)
[2022-01-21] MEDS ORDERED: SUGAMMADEX SODIUM 500 MG/5 ML VIAL (BRIDION) As Ordered ONE (19:59)
[2022-01-21] MEDS ORDERED: PHENYLephrine 500MCG 5ML (100MCG/ML) SYRINGE As Ordered ONE ×2 (20:02→20:11)
[2022-01-21] MEDS ORDERED: PHENYLEPHRINE 10MG/ML 1ML VIAL (J2370 PER 1) As Ordered ONE (20:04)
[2022-01-21] MEDS ORDERED: METOCLOPRAMIDE INJ 10MG/2ML VIAL (J2765 PER 1) As Ordered ONE (20:20)
[2022-01-21] MEDS ORDERED: BUPIVACAINE HCL 0.25% 10ML VIAL As Ordered ONE (22:12)
[2022-01-21] MEDS ORDERED: BUPIVACAINE LIPOSOME/PF 1.3% 20ML VIAL (13.3MG/ML)(EXPAREL) As Ordered ONE (22:13)
[2022-01-21] MEDS ORDERED: BUPIVACAINE HCL 0.25% 30ML VIAL As Ordered ONE (22:21)
[2022-01-21] MEDS ORDERED: MORPHINE 2 MG/ML 1ML VIAL IV PRN (23:00)
[2022-01-21] MEDS ORDERED: LR 1,000 ML IV SCH (23:00)
[2022-01-21] MEDS ORDERED: ONDANSETRON 4MG 2ML VIAL IV PRN (23:00)
[2022-01-21] MEDS ORDERED: fentaNYL 100 MCG/2 ML INJECTION IV PRN (23:00)
[2022-01-21 23:47] VITALS: BP 180/82
[2022-01-22] VITALS (10 sets, daily range): BP systolic 105–168; BP diastolic 49–90
[2022-01-22] MEDS ORDERED: ACETAMINOPHEN 500 MG TAB PO ONE (02:00)
[2022-01-22] MEDS: ceFAZolin SOD 1 GM in D5W MINI-BAG PLUS 50 ML IV SCH ×2 (04:22→12:09)
[2022-01-22] MEDS: LEVOTHYROXINE 100MCG TABLET (0.1MG) PO SCH (06:34)
[2022-01-22] MEDS: INSULIN LISPRO (NovoLOG) PER UNIT SC SCH ×5 (06:40→21:00)
[2022-01-22 07:24] LABS: HEMATOCRIT 29.6 % (36.0-47.0); MEAN CORPUSCULAR HEMOGLOBIN 29.2 pg (27.0-33.0); MEAN CORPUSCULAR HGB CONC 31.4 g/dl (32.0-36.5); MEAN CORPUSCULAR VOLUME 92.8 fl (80.0-96.0); PLATELET COUNT, AUTOMATED 233 10^3/uL (150-450); RED BLOOD COUNT 3.19 10^6/uL (4.00-5.40); WHITE BLOOD COUNT 9.6 10^3/uL (4.0-10.0)
[2022-01-22 07:37] LABS: HEMOGLOBIN 9.3 g/dl (12.0-15.5)
[2022-01-22 08:02] LABS: BLOOD UREA NITROGEN 22 MG/DL (7-18); CALCIUM LEVEL 8.5 MG/DL (8.8-10.2); CARBON DIOXIDE LEVEL 24 MEQ/L (21-32); CHLORIDE LEVEL 105 MEQ/L (98-107); CREATININE FOR GFR 0.76 MG/DL (0.55-1.30); GLOMERULAR FILTRATION RATE > 60.0 (>39); GLUCOSE, FASTING 358 MG/DL (70-100); POTASSIUM SERUM 4.9 MEQ/L (3.5-5.1); SODIUM LEVEL 136 MEQ/L (136-145)
[2022-01-22] MEDS: VITAMIN D 1,000 INTERNATIONAL UNITS TABLET PO SCH (08:21)
[2022-01-22] MEDS: ASPIRIN 81MG ENTERIC TABLET PO SCH (08:22)
[2022-01-22] MEDS: SIMVASTATIN 20 MG TAB PO SCH (08:22)
[2022-01-22] MEDS: EZETIMIBE 10MG TABLET (ZETIA) PO SCH (08:22)
[2022-01-22] MEDS: OMEPRAZOLE 20MG CAP PO SCH (08:22)
[2022-01-22] MEDS ORDERED: amLODIPine 5 MG TAB PO SCH (09:00)
[2022-01-22] MEDS: ENOXAPARIN 40MG/0.4ML SYRINGE (J1650 PER 10MG) SC SCH (12:10)
[2022-01-22] MEDS: LEVEMIR (INSULIN DETEMIR) 1 UNITS/0.01ML SC SCH (13:43)
[2022-01-22] MEDS: ACETAMINOPHEN TAB 650MG DOSE (2X325MG) PO PRN (15:57)
[2022-01-22] MEDS: PERCOCET 5MG/325MG TAB PO PRN (17:23)
[2022-01-22] MEDS ORDERED: LEVEMIR (INSULIN DETEMIR) 1 UNITS/0.01ML SC SCH ×2 (21:00)
[2022-01-23 06:00] VITALS: BP 130/66
[2022-01-23] MEDS: LEVOTHYROXINE 100MCG TABLET (0.1MG) PO SCH (06:19)
[2022-01-23] MEDS: PERCOCET 5MG/325MG TAB PO PRN ×3 (06:20→20:11)
[2022-01-23 07:37] LABS: HEMATOCRIT 25.7 % (36.0-47.0); HEMOGLOBIN 8.1 g/dl (12.0-15.5); MEAN CORPUSCULAR HGB CONC 31.5 g/dl (32.0-36.5); MEAN CORPUSCULAR VOLUME 92.1 fl (80.0-96.0); PLATELET COUNT, AUTOMATED 197 10^3/uL (150-450); RED BLOOD COUNT 2.79 10^6/uL (4.00-5.40); WHITE BLOOD COUNT 7.1 10^3/uL (4.0-10.0)
[2022-01-23] MEDS: INSULIN LISPRO (NovoLOG) PER UNIT SC SCH ×4 (07:53→20:10)
[2022-01-23 08:08] LABS: BLOOD UREA NITROGEN 23 MG/DL (7-18); CALCIUM LEVEL 8.6 MG/DL (8.8-10.2); CARBON DIOXIDE LEVEL 25 MEQ/L (21-32); CHLORIDE LEVEL 104 MEQ/L (98-107); CREATININE FOR GFR 0.75 MG/DL (0.55-1.30); GLOMERULAR FILTRATION RATE > 60.0 (>39); GLUCOSE, FASTING 256 MG/DL (70-100); SODIUM LEVEL 136 MEQ/L (136-145)
[2022-01-23] MEDS: LEVEMIR (INSULIN DETEMIR) 1 UNITS/0.01ML SC SCH (10:13)
[2022-01-23] MEDS: ENOXAPARIN 40MG/0.4ML SYRINGE (J1650 PER 10MG) SC SCH (10:14)
[2022-01-23] MEDS: ASPIRIN 81MG ENTERIC TABLET PO SCH (10:14)
[2022-01-23] MEDS: EZETIMIBE 10MG TABLET (ZETIA) PO SCH (10:15)
[2022-01-23] MEDS: SIMVASTATIN 20 MG TAB PO SCH (10:16)
[2022-01-23] MEDS: OMEPRAZOLE 20MG CAP PO SCH (10:16)
[2022-01-23] MEDS: VITAMIN D 1,000 INTERNATIONAL UNITS TABLET PO SCH (10:16)
[2022-01-23 14:05] VITALS: BP 83/38
[2022-01-23 14:07] VITALS: BP 84/37
[2022-01-23 15:00] VITALS: BP 110/60
[2022-01-23 22:00] VITALS: BP 110/54
[2022-01-24] MEDS: PERCOCET 5MG/325MG TAB PO PRN ×2 (05:21→17:40)
[2022-01-24] MEDS: LEVOTHYROXINE 100MCG TABLET (0.1MG) PO SCH (05:21)
[2022-01-24 06:00] VITALS: BP 155/77
[2022-01-24 06:23] LABS: HEMATOCRIT 26.9 % (36.0-47.0); HEMOGLOBIN 8.5 g/dl (12.0-15.5); MEAN CORPUSCULAR HEMOGLOBIN 29.9 pg (27.0-33.0); MEAN CORPUSCULAR HGB CONC 31.6 g/dl (32.0-36.5); MEAN CORPUSCULAR VOLUME 94.7 fl (80.0-96.0); PLATELET COUNT, AUTOMATED 202 10^3/uL (150-450); RED BLOOD COUNT 2.84 10^6/uL (4.00-5.40); WHITE BLOOD COUNT 6.9 10^3/uL (4.0-10.0)
[2022-01-24 07:03] LABS: BLOOD UREA NITROGEN 26 MG/DL (7-18); CALCIUM LEVEL 8.8 MG/DL (8.8-10.2); CARBON DIOXIDE LEVEL 26 MEQ/L (21-32); CHLORIDE LEVEL 104 MEQ/L (98-107); CREATININE FOR GFR 0.78 MG/DL (0.55-1.30); GLOMERULAR FILTRATION RATE > 60.0 (>39); GLUCOSE, FASTING 347 MG/DL (70-100); POTASSIUM SERUM 4.5 MEQ/L (3.5-5.1); SODIUM LEVEL 135 MEQ/L (136-145)
[2022-01-24] MEDS ORDERED: SENNA 8.6 MG TAB (SENOKOT) PO PRN (07:35)
[2022-01-24] MEDS ORDERED: DOCUSATE SODIUM 100MG CAPSULE PO PRN (07:35)
[2022-01-24 08:00] VITALS: BP 148/67
[2022-01-24] MEDS: INSULIN LISPRO (NovoLOG) PER UNIT SC SCH ×4 (08:01→20:04)
[2022-01-24] MEDS: OMEPRAZOLE 20MG CAP PO SCH (08:12)
[2022-01-24] MEDS: ASPIRIN 81MG ENTERIC TABLET PO SCH (08:12)
[2022-01-24] MEDS: VITAMIN D 1,000 INTERNATIONAL UNITS TABLET PO SCH (08:14)
[2022-01-24] MEDS: EZETIMIBE 10MG TABLET (ZETIA) PO SCH (08:15)
[2022-01-24] MEDS: SIMVASTATIN 20 MG TAB PO SCH (08:15)
[2022-01-24] MEDS: LEVEMIR (INSULIN DETEMIR) 1 UNITS/0.01ML SC SCH (09:03)
[2022-01-24] MEDS: ENOXAPARIN 40MG/0.4ML SYRINGE (J1650 PER 10MG) SC SCH (09:06)
[2022-01-24] MEDS ORDERED: BISACODYL 10 MG SUPP PR ONE (10:05)
[2022-01-24] MEDS ORDERED: LACTULOSE 20 GM/30 ML SYRUP UD PO ONE (10:05)
[2022-01-24] MEDS ORDERED: BISACODYL 10 MG SUPP PR PRN (12:45)
[2022-01-24 13:58] VITALS: BP 125/49
[2022-01-24] MEDS: LACTULOSE 20 GM/30 ML SYRUP UD PO SCH ×2 (18:00→23:39)
[2022-01-24] MEDS: SENNA 8.6 MG TAB (SENOKOT) PO SCH (20:03)
[2022-01-24] MEDS: DOCUSATE SODIUM 100MG CAPSULE PO SCH (20:03)
[2022-01-24] MEDS: ACETAMINOPHEN TAB 650MG DOSE (2X325MG) PO PRN (20:04)
[2022-01-24 21:56] VITALS: BP 123/49
[2022-01-25 06:00] VITALS: BP 145/75
[2022-01-25] MEDS: LEVOTHYROXINE 100MCG TABLET (0.1MG) PO SCH (06:09)
[2022-01-25] MEDS: LACTULOSE 20 GM/30 ML SYRUP UD PO SCH ×3 (06:09→17:23)
[2022-01-25] MEDS ORDERED: MAGNESIUM CITRATE 300 ML BTL PO ONE (07:20)
[2022-01-25 07:47] LABS: BASO # 0.1 10^3/uL (0.0-0.2); BASO % 0.9 % (0.0-1.0); EOS # 0.1 10^3/uL (0.0-0.5); EOS % 1.8 % (0.0-3.0); HEMOGLOBIN 8.3 g/dl (12.0-15.5); LYMPH # 1.5 10^3/uL (1.5-5.0); LYMPH % 21.7 % (24.0-44.0); MEAN CORPUSCULAR HEMOGLOBIN 29.2 pg (27.0-33.0); MEAN CORPUSCULAR HGB CONC 31.9 g/dl (32.0-36.5); MEAN CORPUSCULAR VOLUME 91.5 fl (80.0-96.0); MONO # 0.6 10^3/uL (0.0-0.8); MONO % 8.7 % (2.0-8.0); NEUTROPHILS # 4.5 10^3/uL (1.5-8.5); NEUTROPHILS % 66.2 % (36.0-66.0); PLATELET COUNT, AUTOMATED 237 10^3/uL (150-450); RED BLOOD COUNT 2.84 10^6/uL (4.00-5.40); WHITE BLOOD COUNT 6.8 10^3/uL (4.0-10.0)
[2022-01-25] MEDS: INSULIN LISPRO (NovoLOG) PER UNIT SC SCH ×4 (07:51→20:38)
[2022-01-25] MEDS: DOCUSATE SODIUM 100MG CAPSULE PO SCH ×2 (07:51→20:37)
[2022-01-25] MEDS: OMEPRAZOLE 20MG CAP PO SCH (07:52)
[2022-01-25] MEDS: ASPIRIN 81MG ENTERIC TABLET PO SCH (07:52)
[2022-01-25] MEDS: VITAMIN D 1,000 INTERNATIONAL UNITS TABLET PO SCH (07:53)
[2022-01-25] MEDS: EZETIMIBE 10MG TABLET (ZETIA) PO SCH (07:53)
[2022-01-25] MEDS: SENNA 8.6 MG TAB (SENOKOT) PO SCH ×2 (07:53→20:37)
[2022-01-25] MEDS: SIMVASTATIN 20 MG TAB PO SCH (07:53)
[2022-01-25] MEDS: LEVEMIR (INSULIN DETEMIR) 1 UNITS/0.01ML SC SCH (07:54)
[2022-01-25] MEDS: ENOXAPARIN 40MG/0.4ML SYRINGE (J1650 PER 10MG) SC SCH (07:54)
[2022-01-25] MEDS: PERCOCET 5MG/325MG TAB PO PRN ×2 (08:05→19:05)
[2022-01-25 08:20] LABS: BLOOD UREA NITROGEN 23 MG/DL (7-18); CALCIUM LEVEL 8.7 MG/DL (8.8-10.2); CARBON DIOXIDE LEVEL 26 MEQ/L (21-32); CHLORIDE LEVEL 104 MEQ/L (98-107); CREATININE FOR GFR 0.63 MG/DL (0.55-1.30); GLOMERULAR FILTRATION RATE > 60.0 (>39); GLUCOSE, FASTING 284 MG/DL (70-100); MAGNESIUM LEVEL 1.5 MG/DL (1.8-2.4); POTASSIUM SERUM 4.4 MEQ/L (3.5-5.1); SODIUM LEVEL 135 MEQ/L (136-145)
[2022-01-25] MEDS ORDERED: MAGNESIUM CITRATE 300 ML BTL PO PRN (11:30)
[2022-01-25 14:15] VITALS: BP 146/63
[2022-01-25 14:16] VITALS: BP 146/63
[2022-01-25] MEDS ORDERED: MAGNESIUM OXIDE 400MG TAB (MAG-OX) PO ONE (17:45)
[2022-01-26] MEDS: LEVOTHYROXINE 100MCG TABLET (0.1MG) PO SCH (05:00)
[2022-01-26] MEDS: PERCOCET 5MG/325MG TAB PO PRN ×3 (05:00→21:14)
[2022-01-26] MEDS: LACTULOSE 20 GM/30 ML SYRUP UD PO SCH ×5 (05:01→21:55)
[2022-01-26 06:00] VITALS: BP_SYST 132; BP_SYST 154; BP_DIAS 64; BP_DIAS 65
[2022-01-26 07:20] VITALS: BP 143/67
[2022-01-26 07:28] LABS: BASO # 0.1 10^3/uL (0.0-0.2); EOS # 0.2 10^3/uL (0.0-0.5); EOS % 2.9 % (0.0-3.0); HEMATOCRIT 25.7 % (36.0-47.0); HEMOGLOBIN 8.1 g/dl (12.0-15.5); LYMPH # 1.7 10^3/uL (1.5-5.0); LYMPH % 26.4 % (24.0-44.0); MEAN CORPUSCULAR HEMOGLOBIN 29.2 pg (27.0-33.0); MEAN CORPUSCULAR HGB CONC 31.5 g/dl (32.0-36.5); MEAN CORPUSCULAR VOLUME 92.8 fl (80.0-96.0); MONO # 0.7 10^3/uL (0.0-0.8); MONO % 11.4 % (2.0-8.0); NEUTROPHILS # 3.6 10^3/uL (1.5-8.5); NEUTROPHILS % 57.5 % (36.0-66.0); PLATELET COUNT, AUTOMATED 257 10^3/uL (150-450); RED BLOOD COUNT 2.77 10^6/uL (4.00-5.40); WHITE BLOOD COUNT 6.3 10^3/uL (4.0-10.0)
[2022-01-26 07:38] LABS: BLOOD UREA NITROGEN 20 MG/DL (7-18); CALCIUM LEVEL 8.5 MG/DL (8.8-10.2); CARBON DIOXIDE LEVEL 25 MEQ/L (21-32); CHLORIDE LEVEL 100 MEQ/L (98-107); GLOMERULAR FILTRATION RATE > 60.0 (>39); GLUCOSE, FASTING 363 MG/DL (70-100); MAGNESIUM LEVEL 1.5 MG/DL (1.8-2.4); POTASSIUM SERUM 4.4 MEQ/L (3.5-5.1); SODIUM LEVEL 133 MEQ/L (136-145)
[2022-01-26] MEDS: OMEPRAZOLE 20MG CAP PO SCH (08:04)
[2022-01-26] MEDS: VITAMIN D 1,000 INTERNATIONAL UNITS TABLET PO SCH (08:04)
[2022-01-26] MEDS: DOCUSATE SODIUM 100MG CAPSULE PO SCH ×2 (08:04→21:10)
[2022-01-26] MEDS: SIMVASTATIN 20 MG TAB PO SCH (08:05)
[2022-01-26] MEDS: SENNA 8.6 MG TAB (SENOKOT) PO SCH ×2 (08:05→21:11)
[2022-01-26] MEDS: EZETIMIBE 10MG TABLET (ZETIA) PO SCH (08:05)
[2022-01-26] MEDS: ASPIRIN 81MG ENTERIC TABLET PO SCH (08:05)
[2022-01-26] MEDS: LEVEMIR (INSULIN DETEMIR) 1 UNITS/0.01ML SC SCH (08:06)
[2022-01-26] MEDS: INSULIN LISPRO (NovoLOG) PER UNIT SC SCH ×4 (08:06→21:00)
[2022-01-26] MEDS: ENOXAPARIN 40MG/0.4ML SYRINGE (J1650 PER 10MG) SC SCH (08:06)
[2022-01-26] MEDS: MAG SULF 1GM/100ML (MAG RUN) 1 GM in IV 1 EA IV SCH ×2 (09:48→10:45)
[2022-01-27] VITALS: BP 143/69
[2022-01-27 05:30] LABS: APPEARANCE, URINE MANUAL CLOUDY (CLEAR); COLOR, URINE MANUAL YELLOW (YELLOW)
[2022-01-27 05:31] LABS: PROTEIN, URINE MANUAL TRACE mg/dL (NEGATIVE); SPECIFIC GRAVITY,URINE MANUAL 1.025 (1.002-1.035)
[2022-01-27 05:32] LABS: BILIRUBIN, URINE MANUAL NEGATIVE (NEGATIVE); BLOOD URINE MANUAL TRACE (NEGATIVE); GLUCOSE, URINE (UA) MANUAL NEGATIVE (NEGATIVE); KETONE, URINE MANUAL 2+ mg/dL (NEGATIVE); LEUKOCYTE ESTERASE, URINE MAN POSITIVE (NEGATIVE); NITRITE, URINE MANUAL POSITIVE (NEGATIVE); UROBILINOGEN, URINE MANUAL NORMAL (NORMAL)
[2022-01-27] MEDS: LEVOTHYROXINE 100MCG TABLET (0.1MG) PO SCH (05:34)
[2022-01-27] MEDS: LACTULOSE 20 GM/30 ML SYRUP UD PO SCH ×3 (05:34→18:00)
[2022-01-27 05:38] LABS: WBC, URINE 15-20 /hpf (0-3)
[2022-01-27 05:39] LABS: BACTERIA, URINE LARGE AMOUNT; HYALINE CAST, URINE NONE SEEN /lpf (0-1); SQUAMOUS EPITHELIAL CELL URINE SMALL AMOUNT /hpf (SMALL AMT)
[2022-01-27 06:50] LABS: BASO # 0.1 10^3/uL (0.0-0.2); BASO % 1.1 % (0.0-1.0); EOS # 0.2 10^3/uL (0.0-0.5); HEMATOCRIT 26.5 % (36.0-47.0); HEMOGLOBIN 8.4 g/dl (12.0-15.5); LYMPH # 1.6 10^3/uL (1.5-5.0); LYMPH % 24.8 % (24.0-44.0); MEAN CORPUSCULAR HGB CONC 31.7 g/dl (32.0-36.5); MEAN CORPUSCULAR VOLUME 91.4 fl (80.0-96.0); MONO # 0.7 10^3/uL (0.0-0.8); MONO % 11.7 % (2.0-8.0); NEUTROPHILS # 3.6 10^3/uL (1.5-8.5); NEUTROPHILS % 58.1 % (36.0-66.0); PLATELET COUNT, AUTOMATED 277 10^3/uL (150-450); WHITE BLOOD COUNT 6.3 10^3/uL (4.0-10.0)
[2022-01-27 07:20] LABS: BLOOD UREA NITROGEN 16 MG/DL (7-18); CALCIUM LEVEL 8.5 MG/DL (8.8-10.2); CARBON DIOXIDE LEVEL 25 MEQ/L (21-32); CHLORIDE LEVEL 102 MEQ/L (98-107); CREATININE FOR GFR 0.52 MG/DL (0.55-1.30); GLOMERULAR FILTRATION RATE > 60.0 (>39); GLUCOSE, FASTING 226 MG/DL (70-100); MAGNESIUM LEVEL 1.8 MG/DL (1.8-2.4); SODIUM LEVEL 137 MEQ/L (136-145)
[2022-01-27] MEDS: ENOXAPARIN 40MG/0.4ML SYRINGE (J1650 PER 10MG) SC SCH (08:33)
[2022-01-27] MEDS: INSULIN LISPRO (NovoLOG) PER UNIT SC SCH ×4 (08:34→20:56)
[2022-01-27] MEDS: LEVEMIR (INSULIN DETEMIR) 1 UNITS/0.01ML SC SCH (08:34)
[2022-01-27] MEDS: EZETIMIBE 10MG TABLET (ZETIA) PO SCH (08:35)
[2022-01-27] MEDS: OMEPRAZOLE 20MG CAP PO SCH (08:35)
[2022-01-27] MEDS: ACETAMINOPHEN TAB 650MG DOSE (2X325MG) PO PRN ×2 (08:35→18:32)
[2022-01-27] MEDS: VITAMIN D 1,000 INTERNATIONAL UNITS TABLET PO SCH (08:35)
[2022-01-27] MEDS: ASPIRIN 81MG ENTERIC TABLET PO SCH (08:35)
[2022-01-27] MEDS: DOCUSATE SODIUM 100MG CAPSULE PO SCH ×2 (08:35→20:56)
[2022-01-27] MEDS: SIMVASTATIN 20 MG TAB PO SCH (08:36)
[2022-01-27] MEDS: MAGNESIUM OXIDE 400MG TAB (MAG-OX) PO SCH (08:36)
[2022-01-27] MEDS: SENNA 8.6 MG TAB (SENOKOT) PO SCH ×2 (08:36→20:57)
[2022-01-28] MEDS: LEVOTHYROXINE 100MCG TABLET (0.1MG) PO SCH (05:26)
[2022-01-28] MEDS: LACTULOSE 20 GM/30 ML SYRUP UD PO SCH ×4 (05:27→18:09)
[2022-01-28 05:31] VITALS: BP 141/68
[2022-01-28] MEDS: ONDANSETRON 4MG ORAL DISINTEGRATING TAB PO PRN (05:51)
[2022-01-28 05:57] LABS: BASO # 0.1 10^3/uL (0.0-0.2); BASO % 0.9 % (0.0-1.0); EOS # 0.2 10^3/uL (0.0-0.5); EOS % 2.5 % (0.0-3.0); HEMATOCRIT 26.9 % (36.0-47.0); HEMOGLOBIN 8.6 g/dl (12.0-15.5); LYMPH # 1.6 10^3/uL (1.5-5.0); LYMPH % 23.5 % (24.0-44.0); MEAN CORPUSCULAR HEMOGLOBIN 28.9 pg (27.0-33.0); MEAN CORPUSCULAR VOLUME 90.3 fl (80.0-96.0); MONO # 0.8 10^3/uL (0.0-0.8); MONO % 11.9 % (2.0-8.0); PLATELET COUNT, AUTOMATED 319 10^3/uL (150-450); RED BLOOD COUNT 2.98 10^6/uL (4.00-5.40); WHITE BLOOD COUNT 6.7 10^3/uL (4.0-10.0)
[2022-01-28 06:28] LABS: BLOOD UREA NITROGEN 13 MG/DL (7-18); CALCIUM LEVEL 8.4 MG/DL (8.8-10.2); CARBON DIOXIDE LEVEL 25 MEQ/L (21-32); CHLORIDE LEVEL 103 MEQ/L (98-107); CREATININE FOR GFR 0.52 MG/DL (0.55-1.30); GLOMERULAR FILTRATION RATE > 60.0 (>39); GLUCOSE, FASTING 193 MG/DL (70-100); MAGNESIUM LEVEL 1.6 MG/DL (1.8-2.4); POTASSIUM SERUM 3.9 MEQ/L (3.5-5.1); SODIUM LEVEL 137 MEQ/L (136-145)
[2022-01-28] MEDS: INSULIN LISPRO (NovoLOG) PER UNIT SC SCH ×4 (08:29→21:00)
[2022-01-28] MEDS: LEVEMIR (INSULIN DETEMIR) 1 UNITS/0.01ML SC SCH (08:29)
[2022-01-28] MEDS: ASPIRIN 81MG ENTERIC TABLET PO SCH (08:30)
[2022-01-28] MEDS: SENNA 8.6 MG TAB (SENOKOT) PO SCH ×2 (08:30→20:34)
[2022-01-28] MEDS: VITAMIN D 1,000 INTERNATIONAL UNITS TABLET PO SCH (08:30)
[2022-01-28] MEDS: SIMVASTATIN 20 MG TAB PO SCH (08:30)
[2022-01-28] MEDS: DOCUSATE SODIUM 100MG CAPSULE PO SCH ×2 (08:30→20:34)
[2022-01-28] MEDS: EZETIMIBE 10MG TABLET (ZETIA) PO SCH (08:30)
[2022-01-28] MEDS: ENOXAPARIN 40MG/0.4ML SYRINGE (J1650 PER 10MG) SC SCH (08:30)
[2022-01-28] MEDS: OMEPRAZOLE 20MG CAP PO SCH (08:30)
[2022-01-28] MEDS: MAGNESIUM OXIDE 400MG TAB (MAG-OX) PO SCH (08:31)
[2022-01-29] MEDS ORDERED: LISI20TA33 PO
[2022-01-29] MEDS ORDERED: MAGN200T10 PO
[2022-01-29] MEDS ORDERED: COLA100C5 PO
[2022-01-29] MEDS ORDERED: ASPI-569 PO
[2022-01-29] MEDS ORDERED: SENN18TA PO
[2022-01-29] MEDS ORDERED: PERCOCET PO
[2022-01-29] MEDS ORDERED: MIRA3350 PO
[2022-01-29] MEDS: LEVOTHYROXINE 100MCG TABLET (0.1MG) PO SCH (05:07)
[2022-01-29] MEDS: LACTULOSE 20 GM/30 ML SYRUP UD PO SCH ×2 (05:07)
[2022-01-29 05:16] VITALS: BP 138/68
[2022-01-29 06:00] VITALS: BP 139/68
[2022-01-29 06:30] LABS: BASO # 0.1 10^3/uL (0.0-0.2); BASO % 1.1 % (0.0-1.0); EOS # 0.1 10^3/uL (0.0-0.5); EOS % 2.2 % (0.0-3.0); HEMATOCRIT 28.1 % (36.0-47.0); LYMPH # 1.5 10^3/uL (1.5-5.0); LYMPH % 23.4 % (24.0-44.0); MEAN CORPUSCULAR HEMOGLOBIN 29.4 pg (27.0-33.0); MEAN CORPUSCULAR VOLUME 91.8 fl (80.0-96.0); MONO # 0.6 10^3/uL (0.0-0.8); MONO % 9.2 % (2.0-8.0); NEUTROPHILS % 62.4 % (36.0-66.0); PLATELET COUNT, AUTOMATED 338 10^3/uL (150-450); RED BLOOD COUNT 3.06 10^6/uL (4.00-5.40); WHITE BLOOD COUNT 6.4 10^3/uL (4.0-10.0)
[2022-01-29 07:02] LABS: BLOOD UREA NITROGEN 15 MG/DL (7-18); CALCIUM LEVEL 8.7 MG/DL (8.8-10.2); CARBON DIOXIDE LEVEL 26 MEQ/L (21-32); CHLORIDE LEVEL 103 MEQ/L (98-107); CREATININE FOR GFR 0.58 MG/DL (0.55-1.30); GLOMERULAR FILTRATION RATE > 60.0 (>39); GLUCOSE, FASTING 266 MG/DL (70-100); MAGNESIUM LEVEL 1.7 MG/DL (1.8-2.4); POTASSIUM SERUM 4.3 MEQ/L (3.5-5.1); SODIUM LEVEL 136 MEQ/L (136-145)
[2022-01-29] MEDS ORDERED: FUROSEMIDE 20 MG TAB PO ONE (09:00)
[2022-01-29] MEDS ORDERED: MAGNESIUM OXIDE 400MG TAB (MAG-OX) PO SCH (09:00)
[2022-01-29] MEDS: INSULIN LISPRO (NovoLOG) PER UNIT SC SCH (09:27)
[2022-01-29] MEDS: LEVEMIR (INSULIN DETEMIR) 1 UNITS/0.01ML SC SCH (09:27)
[2022-01-29 09:28] VITALS: BP 139/68
[2022-01-29] MEDS: ASPIRIN 81MG ENTERIC TABLET PO SCH (09:28)
[2022-01-29] MEDS: EZETIMIBE 10MG TABLET (ZETIA) PO SCH (09:28)
[2022-01-29] MEDS: SIMVASTATIN 20 MG TAB PO SCH (09:28)
[2022-01-29] MEDS: SENNA 8.6 MG TAB (SENOKOT) PO SCH (09:29)
[2022-01-29] MEDS: ONDANSETRON 4MG ORAL DISINTEGRATING TAB PO PRN (09:29)
[2022-01-29] MEDS: DOCUSATE SODIUM 100MG CAPSULE PO SCH (09:29)
[2022-01-29] MEDS: ENOXAPARIN 40MG/0.4ML SYRINGE (J1650 PER 10MG) SC SCH (09:29)
[2022-01-29] MEDS: OMEPRAZOLE 20MG CAP PO SCH (09:29)
[2022-01-29] MEDS: ACETAMINOPHEN TAB 650MG DOSE (2X325MG) PO PRN (09:30)
[2022-01-29] MEDS: VITAMIN D 1,000 INTERNATIONAL UNITS TABLET PO SCH (09:30)
== END 2022-01-29 10:45 | DRG 493 ==
LOC: EDBD 14:10 → M ED 14:10 → M ED INP 17:22 → M PCU 23:45 → M MS5PR 01-22 22:23
PROVIDERS: ADMIT Internal Medicine; ATTEND Internal Medicine
PROC: 0QSHXZZ Reposition Left Tibia, External Approach (ICD-10-PCS; 2022-01-21)
PROC: 0QS Lower Bones, Reposition (ICD-10-PCS; principal; 2022-01-21 16:17)
DX: S82.202A Unspecified fracture of shaft of left tibia, initial encounter for closed fracture (principal); L97.419 Non-pressure chronic ulcer of right heel and midfoot with unspecified severity; E03.9 Hypothyroidism, unspecified; E11.42 Type 2 diabetes mellitus with diabetic polyneuropathy; I10 Essential (primary) hypertension; K21.9 Gastro-esophageal reflux disease without esophagitis; E78.5 Hyperlipidemia, unspecified; E11.319 Type 2 diabetes mellitus with unspecified diabetic retinopathy without macular edema; E55.9 Vitamin D deficiency, unspecified; E11.621 Type 2 diabetes mellitus with foot ulcer; K59.00 Constipation, unspecified; R33.9 Retention of urine, unspecified; Z85.3 Personal history of malignant neoplasm of breast; Z92.3 Personal history of irradiation; W10.9XXA Fall (on) (from) unspecified stairs and steps, initial encounter; E11.65 Type 2 diabetes mellitus with hyperglycemia; Z88.0 Allergy status to penicillin; Z88.2 Allergy status to sulfonamides; Z88.8 Allergy status to other drugs, medicaments and biological substances; Z79.82 Long term (current) use of aspirin; Z79.899 Other long term (current) drug therapy; Z79.4 Long term (current) use of insulin; S82.402A Unspecified fracture of shaft of left fibula, initial encounter for closed fracture; Y92.009 Unspecified place in unspecified non-institutional (private) residence as the place of occurrence of the external cause